=== PATIENT | male | born 1985 | race African-American/Black ===

== ENCOUNTER 2016-09-27 11:08 | Emergency (ER) | payer OTHER ==
[2016-09-27 11:24] VITALS: BP 135/106; PULSE 64; RESP 18; TEMP 98.6; O2SAT 97
--- NOTE | 2016-09-27 11:59 | UCPHY ---
H & P Patient Type: New Chief Complaint Nursing Narrative: LEFT FOOT INJURY OCCURRED YESTERDAY WHEN PLAYING BASKETBALL, NOW WITH PAIN AND SWELLING Time Seen by Provider: 09/27/16 11:47 HPI/ROS: CHIEF COMPLAINT: Foot pain HISTORY OF PRESENT ILLNESS: Patient is a 31-year-old man who comes to the Urgent Care complaining of left foot pain. He states that he played basketball last night and woke up this morning with significant pain in his medial foot just distal to the navicular bone. It hurts with weight-bearing or standing on his toes. He is able to do both of those however. No fever. No obvious acute injury. REVIEW OF SYSTEMS: Constitutional: denies: chills, fever, recent illness, recent injury EENTM: denies: blurred vision, double vision, nose congestion Respiratory: denies: cough, shortness of breath Cardiac: denies: chest pain, irregular heart rate, lightheadedness, palpitations Gastrointestinal/Abdominal: denies: abdominal pain, diarrhea, nausea, vomiting, blood streaked stools Genitourinary: denies: dysuria, frequency, hematuria, pain Musculoskeletal: See HPI Skin: denies: lesions, rash, jaundice, bruising Neurological: denies: headache, numbness, paresthesia, tingling, dizziness, weakness Hematologic/Lymphatic: denies: blood clots, easy bleeding, easy bruising Immunologic/allergic: denies: HIV/AIDS, transplant EXAM: GENERAL: Well-appearing, well-nourished and in no acute distress. HEAD: Atraumatic, normocephalic. EYES: Pupils equal round and reactive to light, extraocular movements intact, sclera anicteric, conjunctiva are normal. ENT: TMs normal, nares patent, oropharynx clear without exudates. Moist mucous membranes. NECK: Normal range of motion, supple without lymphadenopathy or JVD. LUNGS: Breath sounds clear to auscultation bilaterally and equal. No wheezes rales or rhonchi. HEART: Regular rate and rhythm without murmurs, rubs or gallops. ABDOMEN: Soft, nontender, normoactive bowel sounds. No guarding, no rebound. No masses appreciated. BACK: No CVA tenderness, no spinal tenderness, step-offs or deformities EXTREMITIES: tenderness at the insertion of the anterior tibialis tendon. No significant pain along the tendon. Normal [id number] strength and sensation. Normal pulses. NEUROLOGICAL: Cranial nerves II through XII grossly intact. Normal speech, normal gait. 5/5 strength, normal movement in all extremities, normal sensation PSYCH: Normal mood, normal affect. SKIN: Warm, dry, normal turgor, no visible rashes or lesions. Source: Patient Exam Limitations: No limitations - Medical/Surgical History Other PMH: HTN, BACK SURG, ACL REPAIR - Family History Significant Family History: No pertinent family hx - Social History Smoking Status: Former smoker Alcohol Use: Sober Drug Use: None Constitutional: Initial Vital Signs Temperature (C) 37.0 C 09/27/16 11:21 Heart Rate 64 09/27/16 11:21 Respiratory Rate 18 09/27/16 11:21 Blood Pressure 135/106 H 09/27/16 11:21 O2 Sat (%) 97 09/27/16 11:21 O2 Delivery Mode Room Air Allergies/Adverse Reactions: No Known Allergies Allergy (Unverified 09/27/16 11:20) Home Medications: Medication Instructions Recorded Lisinopril 09/27/16 Norvasc 09/27/16 Medical Decision Making - Diagnostics Imaging: X-ray: Foot x-ray was obtained. I viewed the images myself on the PACS system. My interpretation of the images is: negative for acute disease . The radiologist interpretation is pending. Procedures: Procedure: Splint placement. A Marty boot splint was applied. After application of the splint I returned and re-examined the patient. The splint was adequately immobilizing the joint and distal to the splint the patient's circulation and sensation was intact. ED Course/Re-evaluation: Patient has appears to be a tendinitis or possibly partially torn tendon. Will treat him with a [place] boot, rest, elevation, ice and anti-inflammatories. I will also give him referral to the special education curriculum specialist. He is agree with this plan. He declines further workup or testing at this time. Differential Diagnosis: Partial list of the Differential diagnosis considered include but were not limited to; tendinitis, tendon rupture and although unlikely based on the history and physical exam, I also considered fracture, dislocation, infection. I discussed these differential diagnoses and the plan with the patient as well as the usual and expected course. The patient understands that the diagnosis is provisional and that in medicine we are not always correct and that further workup is often warranted. Usual and customary warnings were given. All of the patient's questions were answered. The patient was instructed to return to the emergency department should the symptoms at all worsen or return, otherwise to followup with the physician as we discussed. Departure - Departure Disposition: Home, Routine, Self-Care Clinical Impression: Tendinitis Condition: Fair Instructions: Tendinitis (ED) Referrals: Asa Bhat MD [Primary Care Provider] - As per Instructions Asa Riddle MD [Medical Doctor] - As per Instructions - PQRS PQRS Measurement: Not applicable
== END 2016-09-27 12:12 | disposition home or self-care (01) ==
LOC: CED 11:08
DX: M77.9 Enthesopathy, unspecified (principal); I10 Essential (primary) hypertension; Z87.891 Personal history of nicotine dependence
CPT/HCPCS: 73630-PO; 99204-PO; G0463-PO; L4386